=== PATIENT | male | born 1995 | race African-American/Black ===

== ENCOUNTER → 2017-07-05 | Outpatient (CLI) | payer MEDICAID, OTHER | LOC: M OUTALCOH 10:32 | DX: Z13.9 Encounter for screening, unspecified (principal); F12.20 Cannabis dependence, uncomplicated ==

== ENCOUNTER 2017-07-19 12:22 | Emergency (ER) | payer MEDICAID ==
[2017-07-19] MEDS: cefTRIAXone SOD 250 MG VIAL (J0696) IM (14:09)
[2017-07-19] MEDS: AZITHROMYCIN 250 MG TAB PO (14:10)
[2017-07-19 14:12] LABS: KETONE, URINE AUTO RFX NEGATIVE (NEGATIVE); LEUKOCYTE ESTERASE UR AUTO RFX 1+ (NEGATIVE); MUCUS, URINE RFX SMALL (NEGATIVE); NITRITE, URINE AUTO RFX NEGATIVE (NEGATIVE); RBC, URINE AUTO RFX 1 /HPF (0-3); SPECIFIC GRAVITY UR AUTO RFX 1.021 (1.002-1.035); SQUAM EPITHELIAL CELL UR AURFX 0 /HPF (0-6); WBC, URINE AUTO RFX 22 /HPF (0-3)
[2017-07-19 14:17] LABS: CHLAMYDIA DNA AMPLIFICATION NEGATIVE (NEGATIVE); GC DNA AMPLIFICATION POSITIVE (NEGATIVE)
== END 2017-07-19 14:20 | disposition home or self-care (01) ==
LOC: M ED 12:22
DX: N34.2 Other urethritis (principal); F17.200 Nicotine dependence, unspecified, uncomplicated
CPT/HCPCS: J0696

== ENCOUNTER 2017-07-26 13:34 | Outpatient (RCR) | payer MEDICAID | END 2017-08-19 | LOC: M OUTALCOH 13:34 | DX: F12.20 Cannabis dependence, uncomplicated (principal); F17.200 Nicotine dependence, unspecified, uncomplicated ==

== ENCOUNTER → 2018-03-30 | Outpatient (CLI) | payer MEDICAID | LOC: M OUTALCOH 08:09 | PROVIDERS: ATTEND Psychiatry & Neurology Psychiatry | DX: F10.20 Alcohol dependence, uncomplicated (principal) ==

== ENCOUNTER 2018-04-06 14:39 | Outpatient (RCR) | payer MEDICAID | END 2018-04-21 | LOC: M OUTALCOH 14:39 | PROVIDERS: ATTEND Psychiatry & Neurology Psychiatry | DX: F12.20 Cannabis dependence, uncomplicated (principal); F17.200 Nicotine dependence, unspecified, uncomplicated; F10.20 Alcohol dependence, uncomplicated ==

== ENCOUNTER 2018-05-18 08:45 | Outpatient (RCR) | payer MEDICAID | END 2018-05-19 | LOC: M OUTALCOH 08:45 | PROVIDERS: ATTEND Psychiatry & Neurology Psychiatry | DX: F12.20 Cannabis dependence, uncomplicated (principal); F10.20 Alcohol dependence, uncomplicated; F17.200 Nicotine dependence, unspecified, uncomplicated ==

== ENCOUNTER 2018-06-01 08:45 | Outpatient (RCR) | payer MEDICAID | END 2018-06-19 | LOC: M OUTALCOH 08:45 | PROVIDERS: ATTEND Psychiatry & Neurology Psychiatry | DX: F12.20 Cannabis dependence, uncomplicated (principal); F17.200 Nicotine dependence, unspecified, uncomplicated; F10.20 Alcohol dependence, uncomplicated ==

== ENCOUNTER → 2025-02-26 | Outpatient (CLI) | payer OTHER, MEDICAID ==
[~2025-02-26] MED LIST: ACET-907 PO; BUPR8SUB SL; HYDR-3715 PO; SENN-208 PO
== END ==
LOC: M SOG 08:42
PROVIDERS: ATTEND Physician Assistant
DX: S52.501B Unspecified fracture of the lower end of right radius, initial encounter for open fracture type I or II (principal); Z53.9 Procedure and treatment not carried out, unspecified reason

== ENCOUNTER → 2025-03-12 | Outpatient (CLI) | payer OTHER, MEDICAID | LOC: M SOG 03-09 13:51 | PROVIDERS: ATTEND Physician Assistant | DX: Z00.00 Encounter for general adult medical examination without abnormal findings (principal) ==